=== PATIENT | male | born 2005 | race Caucasian/White ===

== ENCOUNTER 2025-06-09 09:21 | Emergency (ER) | payer OTHER, BC ==
[~2025-06-09] VITALS: Ht 182.8 cm; Wt 99.8 kg
[2025-06-09] MEDS ORDERED: Acetaminophen/Oxycodone 5 MG/325 MG TABLET PO ONE (09:40)
[2025-06-09] MEDS ORDERED: MELOXICAM15 MG PO (09:56)
== END 2025-06-09 10:15 | disposition home or self-care (01) ==
LOC: ED 09:21
DX: S63.502A Unspecified sprain of left wrist, initial encounter (principal); V89.2XXA Person injured in unspecified motor-vehicle accident, traffic, initial encounter; Y93.I9 Activity, other involving external motion; Y92.89 Other specified places as the place of occurrence of the external cause; Y99.8 Other external cause status